=== PATIENT | female | born 1935 | race Hispanic/Latino ===

== ENCOUNTER 2017-07-05 18:29 | Emergency (ER) | payer BC, MEDICARE ==
[2017-07-05 18:29] VITALS: BMI 23.4
[2017-07-05 18:34] VITALS: BP 131/84; PULSE 96; RESP 16; TEMP 97.6; O2SAT 100
--- NOTE | 2017-07-05 19:17 | ED PDOC ---
HPI: Skin/Bite Injury Time Seen by Provider: 07/05/17 18:37 Chief Complaint (Nursing): Bite Chief Complaint (Provider): Possible rat bite History Per: Patient History/Exam Limitations: no limitations Onset/Duration Of Symptoms: Days (1) Current Symptoms Are (Timing): Still Present Additional History Per: Patient Additional Complaint(s): The patient is a 81yo female, no past medical history, presents to the ED for evaluation of a possible rat bite. Patient states she was visiting her friend yesterday and states the friends' home had rats; she reports waking up this morning with blood running down her face. Patient states she was bitten above her right eyebrow. She denies any falls, injuries or possibly scratching the area herself. Of note, patient states her tetanus is not up to date. She offers no other medical complaints. PCP: Dr. Aguilar - Animal Bite Description Of The Animal: Unknown (unsure if rat) Animal Appears: Unknown Past Medical History Reviewed: Historical Data, Nursing Documentation, Vital Signs Vital Signs: Last Vital Signs Temp 97.6 F 07/05/17 18:32 Pulse 96 H 07/05/17 18:32 Resp 16 07/05/17 18:32 BP 131/84 07/05/17 18:32 Pulse Ox 100 07/05/17 19:20 - Medical History PMH: Arthritis, Mitral Valve Prolapse - Surgical History Other surgeries: Hysterectomy, left breast lumpectomy - Family History Family History: States: No Known Family Hx - Living Arrangements Living Arrangements: With Family - Social History Current smoker - smoking cessation education provided: No Alcohol: Occasional Drugs: Denies - Immunization History Hx Tetanus Toxoid Vaccination: No (not sure of last tetanus) - Home Medications Home Medications: Ambulatory Orders Medication Instructions Recorded Aspirin [Ecotrin] 325 mg PO DAILY 07/19/16 Calcium/Vitamin D [Oyster Shell 1 tab PO DAILY 07/19/16 Calcium/Vitamin D 500 mg-200 IU] Fexofenadine HCl [Eda NF] 180 mg PO DAILY 07/19/16 Amoxicillin/Potassium Clav 1 tab PO BID #14 tab 07/05/17 [Augmentin 500 mg-125 mg] - Allergies Allergies/Adverse Reactions: Allergies Allergy/AdvReac Type Severity Reaction Status Date / Time No Known Allergies Allergy Verified 07/05/17 18:32 Review of Systems ROS Statement: Except As Marked, All Systems Reviewed And Found Negative Constitutional: Negative for: Fever Skin: Positive for: Other (wound to forehead) Neurological: Negative for: Headache Physical Exam - Reviewed Nursing Documentation Reviewed: Yes Vital Signs Reviewed: Yes - Physical Exam Appears: Positive for: Well, Non-toxic, No Acute Distress Skin: Positive for: Normal Color, Warm. Negative for: Rash Eye Exam: Positive for: Normal appearance, Other (2 puncture wounds noted to right side of forehead with surrounding mild swelling and ecchymosis) Neck: Positive for: Normal, Supple Cardiovascular/Chest: Positive for: Regular Rate, Rhythm Respiratory: Positive for: Normal Breath Sounds. Negative for: Respiratory Distress Extremity: Positive for: Normal ROM Neurologic/Psych: Positive for: Alert, Oriented. Negative for: Motor/Sensory Deficits - ECG O2 Sat by Pulse Oximetry: 100 (RA) Pulse Ox Interpretation: Normal Medical Decision Making Medical Decision Making: Time: 1854 Impression: Puncture wounds to right forehead, rat bite Plan: -- Augmentin initial dose -- TDAP booster -- Rabies vaccination --Rabies immunoglobulin Patient tolerated meds well in ED. Rx augmentin given along with wound care instructions. Patient was given schedule for remaining vaccines in rabies series. She was instructed to follow up with PMD in 1-2 days. Scribe Attestation: Documented by Sandy Ghosh acting as a scribe for SHELBI Maldonado Provider Attestation: All medical record entries made by the Scribe were at my direction and personally dictated by me. I have reviewed the chart and agree that the record accurately reflects my personal performance of the history, physical exam, medical decision making, and the department course for this patient. I have also personally directed, reviewed, and agree with the discharge instructions and disposition. Disposition - Clinical Impression Clinical Impression: Animal bite wound, Requires a booster tetanus, Need for rabies vaccination - Patient ED Disposition Is Patient to be Admitted: No Counseled Patient/Family Regarding: Diagnosis, Need For Followup, Rx Given - Disposition Referrals: Jerardo Aguilar MD [Family Provider] - Disposition: Routine/Home Disposition Time: 20:45 Condition: STABLE Additional Instructions: Wash wound daily with soap and water and apply neosporin once per day. Take antibiotics as directed. Tylenol as needed for pain. Follow up with primary care doctor in 1-2 days. Prescriptions: Amoxicillin/Potassium Clav [Augmentin 500 mg-125 mg] 1 tab PO BID #14 tab Instructions: Animal Bite (ED), Diphtheria/Acellular Pertussis/Tetanus Booster Vaccine (Tdap) (Injection), Rabies Vaccine (By injection) Forms: [employer] (Bahraini)
[2017-07-05] MEDS ORDERED: Amoxicillin-Clav 875-125 mg Tab PO STA (19:23)
[2017-07-05] MEDS ORDERED: Amoxicillin-Clav 875-125 mg Tab PO ONE (19:53)
[2017-07-05] MEDS ORDERED: Rabies Immune Globulin 150 INTLU/ML VIAL IM ONE (20:00)
[2017-07-05] MEDS ORDERED: RABIES VACCINE 2.5 U PDR IM ONE (20:00)
== END 2017-07-05 22:13 | disposition home or self-care (01) ==
LOC: H.ER 18:29
DX: S01.85XA Open bite of other part of head, initial encounter (principal); W53.11XA Bitten by rat, initial encounter; Y92.89 Other specified places as the place of occurrence of the external cause; Z79.82 Long term (current) use of aspirin; I34.1 Nonrheumatic mitral (valve) prolapse

== ENCOUNTER 2017-07-08 13:44 | Emergency (ER) | payer MEDICARE ==
[2017-07-08 13:45] VITALS: BMI 23.4
[2017-07-08 14:11] VITALS: BP 105/71; PULSE 84; RESP 18; TEMP 99.5; O2SAT 99
[2017-07-08] MEDS ORDERED: RABIES VACCINE 2.5 U PDR IM ONE (14:15)
--- NOTE | 2017-07-08 14:49 | ED PDOC ---
HPI: General Adult Time Seen by Provider: 07/08/17 14:10 Chief Complaint (Nursing): Rabies Vaccine Series Chief Complaint (Provider): rabies vaccine History Per: Patient History/Exam Limitations: no limitations Additional Complaint(s): 81yo F in Ed for 2nd rabies IM inj in series. offers no complaints at this time. Past Medical History Reviewed: Historical Data, Nursing Documentation, Vital Signs Vital Signs: Last Vital Signs Temp 99.5 F 07/08/17 14:08 Pulse 84 07/08/17 14:08 Resp 18 07/08/17 14:08 BP 105/71 07/08/17 14:08 Pulse Ox 99 07/08/17 14:08 - Medical History PMH: Arthritis, Mitral Valve Prolapse Denies: Chronic Kidney Disease - Family History Family History: States: No Known Family Hx - Immunization History Hx Tetanus Toxoid Vaccination: No (not sure of last tetanus) - Home Medications Home Medications: Ambulatory Orders Medication Instructions Recorded Aspirin [Ecotrin] 325 mg PO DAILY 07/19/16 Calcium/Vitamin D [Oyster Shell 1 tab PO DAILY 07/19/16 Calcium/Vitamin D 500 mg-200 IU] Fexofenadine HCl [Eda NF] 180 mg PO DAILY 07/19/16 Amoxicillin/Potassium Clav 1 tab PO BID #14 tab 07/05/17 [Augmentin 500 mg-125 mg] - Allergies Allergies/Adverse Reactions: Allergies Allergy/AdvReac Type Severity Reaction Status Date / Time No Known Allergies Allergy Verified 07/05/17 18:32 Review of Systems ROS Statement: Except As Marked, All Systems Reviewed And Found Negative Constitutional: Negative for: Fever Physical Exam - Reviewed Nursing Documentation Reviewed: Yes Vital Signs Reviewed: Yes - Physical Exam Appears: Positive for: Well, Non-toxic, No Acute Distress Skin: Positive for: Normal Color, Warm, Rash (healing abrsion noted to forehead) Cardiovascular/Chest: Positive for: Regular Rate, Rhythm Respiratory: Positive for: CNT, Normal Breath Sounds Neurologic/Psych: Positive for: Alert, Oriented - ECG O2 Sat by Pulse Oximetry: 99 Medical Decision Making Medical Decision Making: next IM inj to be placed 07/12/17. Disposition - Clinical Impression Clinical Impression: Need for rabies vaccination - Patient ED Disposition Is Patient to be Admitted: No Counseled Patient/Family Regarding: Need For Followup - Disposition Disposition: Routine/Home Disposition Time: 14:47 Condition: STABLE Additional Instructions: please return again on: Rabies IM vaccination: Vaccine #1 07/05/17 Vaccine #2 07/08/17 Vaccine #3 07/12/17 Vaccine #4 07/19/17 Instructions: Rabies Vaccine (ED) Forms: [employer] (Mohawk)
== END 2017-07-08 15:05 | disposition home or self-care (01) ==
LOC: H.ER 13:44
DX: Z29.14 Encounter for prophylactic rabies immune globulin (principal)

== ENCOUNTER 2017-07-12 16:33 | Emergency (ER) | payer MEDICARE, OTHER ==
[2017-07-12 16:48] VITALS: BP 117/75; PULSE 88; RESP 18; TEMP 97.5; O2SAT 99
[2017-07-12] MEDS ORDERED: RABIES VACCINE 2.5 U PDR IM ONE (16:49)
--- NOTE | 2017-07-12 17:23 | ED PDOC ---
HPI: General Adult Time Seen by Provider: 07/12/17 16:42 Chief Complaint (Nursing): Rabies Vaccine Series Chief Complaint (Provider): Rabies Vaccine Series History Per: Patient History/Exam Limitations: no limitations Additional Complaint(s): Krystin is an 81 y/o female who presents to the ED for third Rabies vaccine. Denies having any other medical complaints. PMD: Dr. Jerardo Alexander Past Medical History Reviewed: Historical Data, Nursing Documentation, Vital Signs Vital Signs: Last Vital Signs Temp 97.5 F L 07/12/17 16:50 Pulse 88 07/12/17 16:50 Resp 18 07/12/17 16:50 BP 117/75 07/12/17 16:50 Pulse Ox 99 07/12/17 17:25 - Medical History PMH: Arthritis, Malignancy (Left breast cancer), Mitral Valve Prolapse Denies: Chronic Kidney Disease - Surgical History Other surgeries: Cataract surgery, hysterectomy, breast biopsy - Family History Family History: States: Unknown Family Hx - Social History Current smoker - smoking cessation education provided: No Alcohol: None Drugs: Denies - Immunization History Hx Tetanus Toxoid Vaccination: No (not sure of last tetanus) - Home Medications Home Medications: Ambulatory Orders Medication Instructions Recorded Aspirin [Ecotrin] 325 mg PO DAILY 07/19/16 Calcium/Vitamin D [Oyster Shell 1 tab PO DAILY 07/19/16 Calcium/Vitamin D 500 mg-200 IU] Fexofenadine HCl [Eda NF] 180 mg PO DAILY 07/19/16 Amoxicillin/Potassium Clav 1 tab PO BID #14 tab 07/05/17 [Augmentin 500 mg-125 mg] - Allergies Allergies/Adverse Reactions: Allergies Allergy/AdvReac Type Severity Reaction Status Date / Time No Known Allergies Allergy Verified 07/05/17 18:32 Review of Systems ROS Statement: Except As Marked, All Systems Reviewed And Found Negative Physical Exam - Reviewed Nursing Documentation Reviewed: Yes Vital Signs Reviewed: Yes - Physical Exam Appears: Positive for: Well, Non-toxic, No Acute Distress Head Exam: Positive for: ATRAUMATIC, NORMAL INSPECTION, NORMOCEPHALIC Skin: Positive for: Normal Color, Warm, Dry Eye Exam: Positive for: EOMI, Normal appearance, PERRL ENT: Positive for: Normal ENT Inspection Neck: Positive for: Normal, Painless ROM Neurologic/Psych: Positive for: Alert, Oriented - ECG O2 Sat by Pulse Oximetry: 99 (RA) Pulse Ox Interpretation: Normal Medical Decision Making Medical Decision Making: Time: 16:49 --Rabies vaccine given IM Upon provider evaluation patient is medically stable, and requires no further treatment in the ED at this time. Patient will be discharged home. Counseling was provided and all questions were answered regarding diagnosis and need for return for vaccination series. There is agreement to discharge plan. Return if symptoms persist or worsen. Scribe Attestation: Documented by Sis Pike, acting as a scribe for Shelly Salomon PA-C Provider Scribe Attestation: All medical record entries made by the Scribe were at my direction and personally dictated by me. I have reviewed the chart and agree that the record accurately reflects my personal performance of the history, physical exam, medical decision making, and the department course for this patient. I have also personally directed, reviewed, and agree with the discharge instructions and disposition. Disposition - Clinical Impression Clinical Impression: Encounter for repeat administration of rabies vaccination - Patient ED Disposition Is Patient to be Admitted: No - Disposition Disposition Time: 17:00 Condition: STABLE Instructions: Rabies Vaccine (By injection) Forms: [employer] (Tajik)
== END 2017-07-12 17:24 | disposition home or self-care (01) ==
LOC: H.ER 16:33
DX: Z23 Encounter for immunization (principal)

== ENCOUNTER 2017-07-19 12:51 | Emergency (ER) | payer MEDICARE, OTHER ==
[2017-07-19 13:21] VITALS: BP 116/77; PULSE 84; RESP 18; TEMP 98.8; O2SAT 100
[2017-07-19] MEDS ORDERED: RABIES VACCINE 2.5 U PDR IM ONE (13:45)
--- NOTE | 2017-07-19 13:47 | ED PDOC ---
HPI: General Adult Time Seen by Provider: 07/19/17 13:25 Chief Complaint (Nursing): Rabies Vaccine Series Chief Complaint (Provider): Rabies Vaccine Series History Per: Patient History/Exam Limitations: no limitations Additional Complaint(s): Krystin is an 81 y/o female who presents to the ED for follow up of Rabies vaccination series. This is the 4th vaccination of the series. Denies pain, fever, or any medical complaints at this time. PMD: Jerardo Alexander Past Medical History Reviewed: Historical Data, Nursing Documentation, Vital Signs Vital Signs: Last Vital Signs Temp 98.8 F 07/19/17 13:19 Pulse 84 07/19/17 13:19 Resp 18 07/19/17 13:19 BP 116/77 07/19/17 13:19 Pulse Ox 100 07/19/17 13:48 - Medical History PMH: Arthritis, Malignancy (Left breast cancer), Mitral Valve Prolapse Denies: Chronic Kidney Disease - Family History Family History: States: Unknown Family Hx - Social History Current smoker - smoking cessation education provided: No Alcohol: None Drugs: Denies - Immunization History Hx Tetanus Toxoid Vaccination: No (not sure of last tetanus) - Home Medications Home Medications: Ambulatory Orders Medication Instructions Recorded Aspirin [Ecotrin] 325 mg PO DAILY 07/19/16 Calcium/Vitamin D [Oyster Shell 1 tab PO DAILY 07/19/16 Calcium/Vitamin D 500 mg-200 IU] Fexofenadine HCl [Eda NF] 180 mg PO DAILY 07/19/16 Amoxicillin/Potassium Clav 1 tab PO BID #14 tab 07/05/17 [Augmentin 500 mg-125 mg] - Allergies Allergies/Adverse Reactions: Allergies Allergy/AdvReac Type Severity Reaction Status Date / Time No Known Allergies Allergy Verified 07/05/17 18:32 Review of Systems ROS Statement: Except As Marked, All Systems Reviewed And Found Negative Constitutional: Negative for: Fever, Other (Pain) Physical Exam - Reviewed Nursing Documentation Reviewed: Yes Vital Signs Reviewed: Yes - Physical Exam Appears: Positive for: Well, Non-toxic, No Acute Distress Head Exam: Positive for: ATRAUMATIC, NORMAL INSPECTION, NORMOCEPHALIC Skin: Positive for: Normal Color, Warm, Dry. Negative for: Rash Eye Exam: Positive for: EOMI, Normal appearance, PERRL Neck: Positive for: Normal, Painless ROM, Supple Extremity: Positive for: Normal ROM. Negative for: Deformity Neurologic/Psych: Positive for: Alert, Oriented - ECG O2 Sat by Pulse Oximetry: 100 (RA) Pulse Ox Interpretation: Normal Medical Decision Making Medical Decision Making: Time: 13:22 Clinical Impression: Need for Rabies vaccination Plan: --Rabies vaccine administered Time: 13:48 Upon provider evaluation patient is medically stable, and requires no further treatment in the ED at this time. Patient will be discharged home. Counseling was provided and all questions were answered regarding diagnosis and need for follow up with PMD. There is agreement to discharge plan. Return if symptoms persist or worsen. Scribe Attestation: Documented by Sis Pike, acting as a scribe for Clementine De La Rosa PA-C Provider Scribe Attestation: All medical record entries made by the Scribe were at my direction and personally dictated by me. I have reviewed the chart and agree that the record accurately reflects my personal performance of the history, physical exam, medical decision making, and the department course for this patient. I have also personally directed, reviewed, and agree with the discharge instructions and disposition. Disposition - Clinical Impression Clinical Impression: Need for rabies vaccination - Patient ED Disposition Is Patient to be Admitted: No Counseled Patient/Family Regarding: Diagnosis, Need For Followup - Disposition Disposition: Routine/Home Disposition Time: 13:48 Condition: STABLE Instructions: Rabies (ED) Forms: [employer] (Croatian)
== END 2017-07-19 13:50 | disposition home or self-care (01) ==
LOC: H.ER 12:51
DX: Z29.14 Encounter for prophylactic rabies immune globulin (principal)

== ENCOUNTER 2017-11-16 14:03 | Emergency (ER) | payer MEDICARE, BC, OTHER ==
[2017-11-16 14:20] VITALS: BP 145/83; PULSE 112; RESP 17; TEMP 98.5; O2SAT 96
[2017-11-16] MEDS ORDERED: Sodium Chloride 0.9% 1,000 ML IV STA (14:31)
--- NOTE | 2017-11-16 14:31 | ED PDOC ---
HPI: Back Time Seen by Provider: 11/16/17 14:31 Chief Complaint (Nursing): Back Pain Chief Complaint (Provider): back pain, constipation History Per: Patient, Family Additional Complaint(s): 82 year old female with no past medical history presents with upper and mid back pain s/p taking a long walk 3 days ago. Patient states after she came home from a walk in the cold she felt pain in back. Tylenol taken 2 days ago did not help the pain. Patient denies any associated chest pain, SOB or ALBERT. Patient states she has also been constipated since the pain started. She believes that the pain in her back is preventing her from having bowel movement as she has worsening back pain when she strains for BM. Patient denies any diarrhea, nausea or vomiting, no fever or chills. Past Medical History Reviewed: Historical Data, Nursing Documentation, Vital Signs Vital Signs: Last Vital Signs Temp 98.5 F 11/16/17 14:15 Pulse 112 H 11/16/17 14:15 Resp 17 11/16/17 14:15 BP 145/83 11/16/17 14:15 Pulse Ox 96 11/16/17 14:15 - Medical History PMH: Arthritis, Malignancy (Left breast cancer, 1999) - Surgical History Other surgeries: Left lumpectomy, hysterectomy - Family History Family History: States: No Known Family Hx - Living Arrangements Living Arrangements: With Family - Social History Current smoker - smoking cessation education provided: No Ex-Smoker (has not smoked in the last 12 months): No Alcohol: None Drugs: Denies - Home Medications Home Medications: Ambulatory Orders Medication Instructions Recorded Aspirin [Ecotrin] 325 mg PO DAILY 07/19/16 Calcium/Vitamin D [Oyster Shell 1 tab PO DAILY 07/19/16 Calcium/Vitamin D 500 mg-200 IU] Fexofenadine HCl [Eda NF] 180 mg PO DAILY 07/19/16 Amoxicillin/Potassium Clav 1 tab PO BID #14 tab 07/05/17 [Augmentin 500 mg-125 mg] Cyclobenzaprine HCl 5 mg PO TID PRN #20 tablet 11/16/17 Glycerin [Glycerin Adult 1 sup RC ASDIR #10 sup 11/16/17 Suppository] Ibuprofen [Motrin] 600 mg PO Q6 PRN #20 tab 11/16/17 Polyethylene Glycol 3350 [Miralax] 17 gm PO DAILY #300 gm 11/16/17 - Allergies Allergies/Adverse Reactions: Allergies Allergy/AdvReac Type Severity Reaction Status Date / Time No Known Allergies Allergy Verified 07/05/17 18:32 Review of Systems ROS Statement: Except As Marked, All Systems Reviewed And Found Negative Constitutional: Negative for: Fever Cardiovascular: Negative for: Chest Pain Respiratory: Negative for: Cough, Shortness of Breath Gastrointestinal: Positive for: Abdominal Pain, Constipation (x 3 days). Negative for: Nausea, Vomiting, Diarrhea Genitourinary Female: Negative for: Dysuria, Hematuria Musculoskeletal: Positive for: Back Pain (upper and mid) Neurological: Negative for: Confusion, Headache, Dizziness Physical Exam - Reviewed Nursing Documentation Reviewed: Yes Vital Signs Reviewed: Yes - Physical Exam Appears: Positive for: Well, Non-toxic, No Acute Distress Skin: Negative for: Rash Eye Exam: Positive for: Normal appearance Neck: Positive for: Painless ROM Cardiovascular/Chest: Positive for: Regular Rate, Rhythm Respiratory: Positive for: Normal Breath Sounds Gastrointestinal/Abdominal: Positive for: Soft, Tenderness (mild diffuse tenderness mild diffuse tenderness in all 4 quadrants, no rebound or guarding) Back: Positive for: Vertebral Tenderness (thoracic and lumbar). Negative for: L CVA Tenderness, R CVA Tenderness Extremity: Positive for: Normal ROM Neurologic/Psych: Positive for: Alert, Oriented, Gait (steady with cane used at baseline) - Laboratory Results Result Diagrams: 11/16/17 15:15 11/16/17 15:15 Urine dip results: Negative for: Leukocyte Esterase, Blood, Nitrate, Ketones, Glucose, Bilirubin, Protein - ECG Interpretation Of ECG: NSR 81 bpm, no acute finding, reviewed by PA and ED attending O2 Sat by Pulse Oximetry: 96 Pulse Ox Interpretation: Normal - Other Rad CXR X-Ray: Interpreted by Me, Viewed By Me X-Ray Interpretation: no acute finding L/S Spine x-ray X-Ray: Interpreted by Me, Viewed By Me X-Ray Interpretation: see below KUB X-Ray: Interpreted by Me, Viewed By Me X-Ray Interpretation: moderate feces with no obstruction Medical Decision Making Medical Decision Makin82 year old with back pain and constipation Plan: CBC CMP Urine dip KUB L/S spine x-ray CXR IVF PO motrin for pain L/S Spine x-ray: Age-indeterminate L4 superior endplate compression deformity. Pain is better after motrin dose. Patient was offered suppository or laxative in ED but she declined, she prefers to go home and try constipation meds. Patient is aware of all test results. She states she fell several years ago sustaining fracture to L/S spine as noted on x-ray from today. Will d/c with rx motrin, flexeril, miralax and suppositories. High fiber diet instructions given. Advised PMD follow up. Patient is aware she can RTED at any time if acutely worse. Disposition - Clinical Impression Clinical Impression: Back pain, Constipation - Patient ED Disposition Is Patient to be Admitted: No Counseled Patient/Family Regarding: Studies Performed, Diagnosis, Need For Followup, Rx Given - Disposition Referrals: Jerardo Alexander MD [Family Provider] - Disposition: Routine/Home Disposition Time: 16:55 Condition: STABLE Additional Instructions: INCREASE WATER AND FIBER INTAKE TO HELP WITH CONSTIPATION TAKE RX MEDS DIRECTED FOLLOW UP WITH PRIMARY CARE DOCTOR OR RETURN ANY TIME TO ER IF ACUTELY WORSE. Prescriptions: Cyclobenzaprine HCl 5 mg PO TID PRN #20 tablet PRN Reason: Pain, Moderate (4-7) Glycerin [Glycerin Adult Suppository] 1 sup RC ASDIR #10 sup Ibuprofen [Motrin] 600 mg PO Q6 PRN #20 tab PRN Reason: Pain, Moderate (4-7) Polyethylene Glycol 3350 [Miralax] 17 gm PO DAILY #300 gm Instructions: Constipation (ED), High Fiber Diet (ED), Back Pain (ED) Forms: [employer] (Sami) Results - Lab Results Lab Results: 11/16/17 11/16/17 15:15 15:15 WBC 10.0 RBC 4.71 Hgb 12.5 Hct 39.2 MCV 83.3 D MCH 26.5 L MCHC 31.8 L RDW 14.5 Plt Count 212 MPV 8.8 Neut % (Auto) 84.1 H Lymph % (Auto) 9.2 L [place] % (Auto) 6.2 Eos % (Auto) 0.1 Baso % (Auto) 0.4 Neut # 8.4 H Lymph # 0.9 L [place] # 0.6 Eos # 0.0 Baso # 0.0 Neutrophils % (Manual) Pending Lymphocytes % (Manual) Pending Monocytes % (Manual) Pending Platelet Estimate Pending Sodium 139 Potassium 4.1 Chloride 103 Carbon Dioxide 27 Anion Gap 13 BUN 19 H Creatinine 0.7 Est GFR ( Amer) > 60 Est GFR (Non-Af Amer) > 60 Random Glucose 109 H Calcium 9.8 Total Bilirubin 0.4 AST 30 ALT 32 Alkaline Phosphatase 52 Troponin I < 0.0120 Total Protein 7.8 Albumin 4.4 Globulin 3.4 Albumin/Globulin Ratio 1.3
[2017-11-16 15:30] LABS: BASO % 0.4 % (0.0-2.0); EOS % 0.1 % (0.0-4.0); HEMOGLOBIN 12.5 g/dL (12.0-16.0); LYMPH # 0.9 K/uL (1.0-4.3); LYMPH % 9.2 % (20.0-40.0); MEAN CELL VOLUME 83.3 fl (81.0-99.0); MEAN CORPUSCULAR HEMOGLOBIN 26.5 pg (27.0-31.0); MEAN CORPUSCULAR HGB CONC 31.8 g/dL (33.0-37.0); MEAN PLATELET VOLUME 8.8 fl (7.2-11.7); MONO # 0.6 K/uL (0.0-0.8); MONO % 6.2 % (0.0-10.0); NEUT # 8.4 K/uL (1.8-7.0); NEUT % 84.1 % (50.0-75.0); PLATELET COUNT 212 K/uL (130-400); RBC 4.71 Mil/uL (3.80-5.20); RED CELL DISTRIBUTION WIDTH 14.5 % (11.5-14.5)
[2017-11-16 15:37] LABS: ALB/GLOB RATIO 1.3 (1.0-2.1); ALBUMIN 4.4 g/dL (3.5-5.0); ALT/SGPT 32 U/L (9-52); AST/SGOT 30 U/L (14-36); BLOOD UREA NITROGEN 19 mg/dl (7-17); CALCIUM 9.8 mg/dL (8.4-10.2); GFR AFRICAN-AMERICAN > 60; GFR NON-AFRICAN AMERICAN > 60
--- NOTE | 2017-11-16 16:19 | RAD ---
HISTORY: upper back pain COMPARISON: Chest radiograph dated 07/13/2016. TECHNIQUE: Chest PA and lateral FINDINGS: LUNGS: Stable chronic prominence of the bilateral interstitial markings. PLEURA: No significant pleural effusion identified. No pneumothorax apparent. CARDIOVASCULAR: Unchanged. OSSEOUS STRUCTURES: Exaggerated thoracic kyphosis. Degenerative changes. VISUALIZED UPPER ABDOMEN: Normal. OTHER FINDINGS: None. IMPRESSION: No active disease.
--- NOTE | 2017-11-16 16:20 | RAD ---
PROCEDURE: Radiographs of the Lumbar Spine. HISTORY: pain COMPARISON: Correlation is made to chest radiograph dated 07/13/2016. FINDINGS: BONES: Age-indeterminate superior endplate compression deformity of L4. L1 vertebral compression fracture redemonstrated. DISC SPACES: Multilevel narrowing. OTHER FINDINGS: None. IMPRESSION: Age-indeterminate L4 superior endplate compression deformity. MRI can be obtained for further characterization of acuity as clinically warranted.
--- NOTE | 2017-11-16 16:27 | RAD ---
HISTORY: constipation COMPARISON: No prior. FINDINGS: BOWEL: Prominent matter retained colonic stool. Nonspecific bowel gas pattern. No free air. BONES: Diffuse degenerative changes. OTHER FINDINGS: None. IMPRESSION: Prominent amount of retained colonic stool. Nonspecific bowel gas pattern.
[2017-11-16 17:22] LABS: ANISOCYTOSIS SLIGHT; BANDS 5 % (0-2); LYMPHOCYTE 11 % (20-50); MONOCYTE 8 % (0-10); NEUTROPHIL 76 % (42-75); PLATELET ESTIMATE NORMAL (NORMAL); TOTAL CELLS COUNTED 100
[2017-11-16 17:23] LABS: HYPOCHROMIC SLIGHT; MICROCYTOSIS SLIGHT; POIKILOCYTOSIS SLIGHT; TOXIC GRANULATION PRESENT
--- NOTE | 2017-11-17 09:25 | CARD ---
APPROVED REPORT EKG Measurement Heart [id number] ID [id number] <Conclusion> Normal sinus rhythm Possible Left atrial enlargement Borderline ECG
== END 2017-11-16 17:10 | disposition home or self-care (01) ==
LOC: H.ER 14:03
DX: K59.00 Constipation, unspecified (principal); Z79.82 Long term (current) use of aspirin; Z85.3 Personal history of malignant neoplasm of breast; Z87.891 Personal history of nicotine dependence; Z90.710 Acquired absence of both cervix and uterus; M54.9 Dorsalgia, unspecified
CPT/HCPCS: 71020; 72100; 74000; 80053; 84484; 85025; 93005; 96360; 96361; 99282; J7040

== ENCOUNTER 2017-12-06 15:33 | Inpatient (IN) | payer MEDICARE, BC ==
[2017-12-06] MEDS ORDERED: Sodium Chloride 0.9% 500 ML IV STA (17:08)
--- NOTE | 2017-12-06 17:20 | ED PDOC ---
HPI: Back Time Seen by Provider: 12/06/17 16:54 Chief Complaint (Nursing): Shortness Of Breath Chief Complaint (Provider): back pain and SOB History Per: Patient History/Exam Limitations: no limitations Onset/Duration Of Symptoms: Gradual, Other (x2+ weeks worse last few days\) Current Symptoms Are (Timing): Still Present Quality Of Discomfort: Sharp Severity: Severe Previous Symptoms: Back Pain Associated Symptoms: Other (urinary frequency) Exacerbating Factor(s): Turning, Movement, Standing Additional Complaint(s): 82yo female represents c/o back pain, mostly lower back but radiating to left lower ribs and chest. Symptoms worsened w deep breathing causing symptoms of SOB. Denies cough, weakness, fever, vomiting/diarrhea. She has been seen in ED [place] with similar symptoms had LS xray showing age indeterminate compression fx. Denies falls, focal weakness but states not ambulating well. Saw PMD and Rx muscle relaxant and meloxicam but poorly tolerated w getting confused and generalized weakness. Had PT x2 but had to be abandoned due to pain. Past Medical History Reviewed: Historical Data, Nursing Documentation, Vital Signs Vital Signs: Last Vital Signs Temp 96.8 F L 12/06/17 15:58 Pulse 113 H 12/06/17 15:58 Resp 16 12/06/17 15:58 BP 133/76 12/06/17 15:58 Pulse Ox 98 12/06/17 15:58 - Medical History PMH: Arthritis, Malignancy (Left breast cancer), Mitral Valve Prolapse Denies: Chronic Kidney Disease - Family History Family History: States: Unknown Family Hx - Social History Current smoker - smoking cessation education provided: No - Immunization History Hx Tetanus Toxoid Vaccination: No (not sure of last tetanus) - Home Medications Home Medications: Ambulatory Orders Medication Instructions Recorded Aspirin [Ecotrin] 325 mg PO DAILY 07/19/16 Calcium/Vitamin D [Oyster Shell 1 tab PO DAILY 07/19/16 Calcium/Vitamin D 500 mg-200 IU] Fexofenadine HCl [Eda NF] 180 mg PO DAILY 07/19/16 Amoxicillin/Potassium Clav 1 tab PO BID #14 tab 07/05/17 [Augmentin 500 mg-125 mg] Cyclobenzaprine HCl 5 mg PO TID PRN #20 tablet 11/16/17 Glycerin [Glycerin Adult 1 sup RC ASDIR #10 sup 11/16/17 Suppository] Ibuprofen [Motrin] 600 mg PO Q6 PRN #20 tab 11/16/17 Polyethylene Glycol 3350 [Miralax] 17 gm PO DAILY #300 gm 11/16/17 - Allergies Allergies/Adverse Reactions: Allergies Allergy/AdvReac Type Severity Reaction Status Date / Time No Known Allergies Allergy Verified 07/05/17 18:32 Review of Systems ROS Statement: Except As Marked, All Systems Reviewed And Found Negative Constitutional: Negative for: Fever, Chills ENT: Negative for: Nose Discharge Cardiovascular: Positive for: Chest Pain. Negative for: Light Headedness Respiratory: Positive for: Shortness of Breath. Negative for: Cough Gastrointestinal: Negative for: Nausea, Vomiting, Abdominal Pain Genitourinary Female: Positive for: Frequency Musculoskeletal: Positive for: Back Pain, Leg Pain. Negative for: Neck Pain, Shoulder Pain Skin: Negative for: Rash, Lesions, Jaundice Neurological: Positive for: Dizziness. Negative for: Weakness, Numbness, Headache Physical Exam - Reviewed Nursing Documentation Reviewed: Yes Vital Signs Reviewed: Yes - Physical Exam Appears: Positive for: Well, Non-toxic, No Acute Distress Head Exam: Positive for: ATRAUMATIC, NORMAL INSPECTION, NORMOCEPHALIC Skin: Positive for: Normal Color, Warm, DRY Eye Exam: Positive for: EOMI, Normal appearance, PERRL ENT: Positive for: Normal ENT Inspection Neck: Positive for: Normal, Painless ROM Cardiovascular/Chest: Positive for: Tachycardia. Negative for: Irregularly Irregular Respiratory: Positive for: Decreased Breath Sounds. Negative for: Respiratory Distress Gastrointestinal/Abdominal: Positive for: Bowel Sounds, Soft. Negative for: Tenderness, Guarding Back: Positive for: Vertebral Tenderness (lumbar), Decreased ROM Extremity: Positive for: Normal ROM Neurologic/Psych: Positive for: Alert, Oriented, Gait (unable to assess ). Negative for: Motor/Sensory Deficits - Laboratory Results Result Diagrams: 12/06/17 17:59 - ECG O2 Sat by Pulse Oximetry: 98 Medical Decision Making Medical Decision Making: workup initiated for low back pain, also has mild tachycardia. Hx breast ca (lumpectomy) 1999. Obt[address] CT imaging LS spine to better eval compression fx. Labs also ordered given mild tachycardia. CT: Accession No. : [id number] Patient Name / ID : LALIT GODFREY / [id number] Exam Date : 12/06/2017 17:58:20 ( Approved ) Study Comment : Sex / Age : F / 82Y Creator : Bryon Pat MD Dictator : Bryon Pat MD Follow Up Rep : Membership Sales Advisor : Bryon Pat MD Approver2 : Report Date : 12/06/2017 18:32:51 My Comment : PROCEDURE: CT Lumbar Spine without contrast HISTORY: intractable low back pain COMPARISON: None. TECHNIQUE: Axial computed tomography images were obtained of the lumbar spine without the use of intravenous contrast. Coronal and sagittal reformatted images were created and reviewed. Radiation dose: Total exam DLP = 334.25 mGy-cm. This CT exam was performed using one or more of the following dose reduction techniques: Automated exposure control, adjustment of the mA and/or kV according to patient size, and/or use of iterative reconstruction technique. FINDINGS: VERTEBRAE: There is dextroscoliosis of the lumbar spine. There is mild anterior wedge compression deformity of the T12 vertebra, age indeterminate. There is a calcified Schmorl's node in the superior T12 vertebral endplate. There is severe compression deformity of the L2 vertebral body, age indeterminate. There is bony retropulsion resulting in central spinal stenosis. There is mild central compression deformity of the L3 vertebral body, age indeterminate. There is no other vertebral fracture identified. Normal vertebral alignment is maintained. DISCS/SPINAL CANAL/NEURAL FORAMINA: Multilevel neural foraminal stenosis. No disc herniation. Central spinal stenosis noted at L1-2, L2-3 and mild central stenosis at L3-4 and L4-5. Diffuse disc bulge at L4-5 and calcified disc bulge at L5-S1. PARASPINAL SOFT TISSUES: Unremarkable. OTHER FINDINGS: None. IMPRESSION: Dextroscoliosis. Severe compression deformity of the L2 vertebral body with bony retropulsion, all of indeterminate age. Mild central compression deformity of the L3 vertebra. Central spinal stenosis at multiple levels, most pronounced at L1-2 and L2-3. Multilevel neural foraminal stenosis. Patient has failed outpatient therapy including PT, multiple pain medications and muscle relaxant. D/w Dr Aguilar, admit for possible IR intervention/ requests Dr Arevalo for pain consult Lidoderm patch placed and further analgesia w tylenol started. Caution w narcotics due to age and frailty. Fall risk. D/w FP resident 7pm care transferred. Disposition - Clinical Impression Clinical Impression: Compression fracture of lumbar vertebra, Spinal stenosis - Patient ED Disposition Is Patient to be Admitted: Yes Counseled Patient/Family Regarding: Studies Performed, Diagnosis - Disposition Disposition Time: 18:45 Condition: FAIR Forms: [employer] (Romansh) - Pt Status Changed To: Hospital Disposition Of: Inpatient - Admit Certification Admit to Inpatient:: After my assessment, the patient will require hospitalization for at least two midnights. This is because of the severity of symptoms shown, intensity of services needed, and/or the medical risk in this patient being treated as an outpatient. - POA Present On Arrival: None
[2017-12-06 18:05] LABS: BASO # 0.1 K/uL (0.0-0.2); EOS # 0.1 K/uL (0.0-0.7); EOS % 1.3 % (0.0-4.0); HEMOGLOBIN 12.3 g/dL (12.0-16.0); LYMPH # 0.9 K/uL (1.0-4.3); LYMPH % 10.6 % (20.0-40.0); MEAN CELL VOLUME 83.1 fl (81.0-99.0); MEAN CORPUSCULAR HEMOGLOBIN 26.9 pg (27.0-31.0); MEAN CORPUSCULAR HGB CONC 32.4 g/dL (33.0-37.0); MEAN PLATELET VOLUME 8.4 fl (7.2-11.7); MONO # 0.7 K/uL (0.0-0.8); MONO % 8.5 % (0.0-10.0); NEUT # 6.7 K/uL (1.8-7.0); NEUT % 78.6 % (50.0-75.0); NRBC % 0.1 % (0.0-0.0); RBC 4.56 Mil/uL (3.80-5.20); RED CELL DISTRIBUTION WIDTH 15.8 % (11.5-14.5); WHITE BLOOD COUNT 8.6 K/uL (4.8-10.8)
--- NOTE | 2017-12-06 18:34 | CT ---
PROCEDURE: CT Lumbar Spine without contrast HISTORY: intractable low back pain COMPARISON: None. TECHNIQUE: Axial computed tomography images were obtained of the lumbar spine without the use of intravenous contrast. Coronal and sagittal reformatted images were created and reviewed. Radiation dose: Total exam DLP = 334.25 mGy-cm. This CT exam was performed using one or more of the following dose reduction techniques: Automated exposure control, adjustment of the mA and/or kV according to patient size, and/or use of iterative reconstruction technique. FINDINGS: VERTEBRAE: There is dextroscoliosis of the lumbar spine. There is mild anterior wedge compression deformity of the T12 vertebra, age indeterminate. There is a calcified Schmorl's node in the superior T12 vertebral endplate. There is severe compression deformity of the L2 vertebral body, age indeterminate. There is bony retropulsion resulting in central spinal stenosis. There is mild central compression deformity of the L3 vertebral body, age indeterminate. There is no other vertebral fracture identified. Normal vertebral alignment is maintained. DISCS/SPINAL CANAL/NEURAL FORAMINA: Multilevel neural foraminal stenosis. No disc herniation. Central spinal stenosis noted at L1-2, L2-3 and mild central stenosis at L3-4 and L4-5. Diffuse disc bulge at L4-5 and calcified disc bulge at L5-S1. PARASPINAL SOFT TISSUES: Unremarkable. OTHER FINDINGS: None. IMPRESSION: Dextroscoliosis. Severe compression deformity of the L2 vertebral body with bony retropulsion, all of indeterminate age. Mild central compression deformity of the L3 vertebra. Central spinal stenosis at multiple levels, most pronounced at L1-2 and L2-3. Multilevel neural foraminal stenosis.
[2017-12-06] MEDS ORDERED: Lidocaine 5% Patch TD STA (18:47)
[2017-12-06 18:49] LABS: SQUAMOUS EPITHIAL 1 /hpf (0-5); URINE BACTERIA RARE (<OCC); URINE BILIRUBIN NEGATIVE (NEGATIVE); URINE BLOOD SMALL (NEGATIVE); URINE CLARITY CLOUDY (Clear); URINE COLOR YELLOW (YELLOW); URINE GLUCOSE (UA) NEG (Normal); URINE LEUKOCYTE ESTERASE TRACE Leu/uL (Negative); URINE NITRATE NEGATIVE (NEGATIVE); URINE PROTEIN 30 mg/dL (NEGATIVE); URINE UROBILINOGEN 0.2-1.0 mg/dL (0.2-1.0)
[2017-12-06 19:15] LABS: ALB/GLOB RATIO 1.2 (1.0-2.1); ALBUMIN 3.9 g/dL (3.5-5.0); ALT/SGPT 33 U/L (9-52); AST/SGOT 30 U/L (14-36); BLOOD UREA NITROGEN 21 mg/dl (7-17); CALCIUM 9.2 mg/dL (8.4-10.2); GFR AFRICAN-AMERICAN > 60; GFR NON-AFRICAN AMERICAN > 60
[2017-12-06] MEDS ORDERED: HYDROmorphone 0.5 mg/0.5 ml ISec IVP PRN (20:47)
--- NOTE | 2017-12-06 21:09 | CP.PCM.HP ---
History of Present Illness - History of Present Illness History of Present Illness: PMD: Dr Alexander Full code Patient designates her nephew: Chance Otero([phone]) as healthcare proxy. 82 y/o F patient with PMHx of breast ca in 1999 s/p Chemo, radio and hormone therapy at the time presented to ED with her cousin c/o lower back pain for the past 3 weeks. Pain has been getting worse, radiates to both LE occasionally when she walks but denies paresthesias to LE or weakness. Patient was completely functional before the pain started able to take care of herself but now pain is almost constant with minimal position changes and she is having severe difficulty walking due to pain. Patient presented to ED about 3 weeks ago and Lumbar spine Xray at the time reported lumbar compression deformity of indeterminate age and was discharge home with NSAIDs and to f/u as outpatient. Patient visited Dr Alexander 2 days ago after no improvement and was prescribed Meloxican and Cyclobezaprine. She denies feeling any improvement and states that the Cyclobenzaprine made her dizzy and she stopped it. Patient states that she is having difficulty urinating today. Last time she voided was in the morning and although she have the urge to void she hasnt been able to it. Denies feces incontinence, saddle anesthesia, headaches, fever, CP, palpitations or dizziness. Denies Hx of recent falls or trauma. Admits falling about 4 y/a to her back and she received PT after. ED course: Toradol 15 mg IV once NS IV 500ml Tylenol 650mg PO once Lidoderm patch once EKG, CXR, Lumbar spine CT: L2-L3 compression deformities and multilevel spinal stenosis(Please see full report). Present on Admission - Present on Admission Any Indicators Present on Admission: No Review of Systems - Review of Systems All systems: reviewed and no additional remarkable complaints except - Genitourinary Genitourinary: Difficulty Urinating - Musculoskeletal Musculoskeletal: Back Pain Past Patient History - Past Medical History & Family History Past Medical History?: Yes - Past Social History Smoking Status: Never Smoked Alcohol: Social Drugs: Denies Home Situation {Lives}: With Family - PULMONARY Other/Comment: SEASONAL ALLERGY - NEUROLOGICAL Hx Neurological Disorder: No - RENAL Hx Chronic Kidney Disease: No - ENDOCRINE/METABOLIC Hx Endocrine Disorders: No - HEMATOLOGICAL/ONCOLOGICAL Hx Blood Disorders: Yes 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 [place]) - INTEGUMENTARY Hx Dermatological Problems: No - MUSCULOSKELETAL/RHEUMATOLOGICAL Hx Arthritis: Yes - GASTROINTESTINAL Other/Comment: HEARTBURN - GENITOURINARY/GYNECOLOGICAL Hx Genitourinary Disorders: No - PSYCHIATRIC Hx Psychophysiologic Disorder: No Hx Substance Use: No - SURGICAL HISTORY Hx Surgeries: Yes Hx Breast Biopsy: Yes (LEFT) Hx Cataract Extraction: Yes (right) Hx Hysterectomy: Yes (AT AGE 41) - ANESTHESIA Hx Anesthesia: Yes Hx Anesthesia Reactions: No Hx Malignant Hyperthermia: No Meds Allergies/Adverse Reactions: Allergies Allergy/AdvReac Type Severity Reaction Status Date / Time No Known Allergies Allergy Verified 07/05/17 18:32 Physical Exam - Constitutional Appears: Non-toxic, In Acute Distress (MIld due to pain and urinary urgency) - Head Exam Head Exam: ATRAUMATIC, NORMOCEPHALIC - Eye Exam Eye Exam: PERRL - ENT Exam ENT Exam: Mucous Membranes Moist - Neck Exam Neck exam: Positive for: Full Rom - Respiratory Exam Respiratory Exam: Clear to Auscultation Bilateral, NORMAL BREATHING PATTERN. absent: Rales, Wheezes, Respiratory Distress - Cardiovascular Exam Cardiovascular Exam: REGULAR RHYTHM, +S1, +S2 - GI/Abdominal Exam GI & Abdominal Exam: Normal Bowel Sounds, Soft, Tenderness (Moderate suprapubic) . absent: Guarding - Extremities Exam Extremities exam: Positive for: normal capillary refill, normal inspection. Negative for: calf tenderness, pedal edema, tenderness - Back Exam Back exam: paraspinal tenderness, vertebral tenderness (Lumbar spine L3-L4) Additional comments: Straight leg test neg B/L. - Neurological Exam Neurological exam: Alert, CN II-XII Intact, Oriented x3, Reflexes Normal - Psychiatric Exam Psychiatric exam: Normal Affect, Normal Mood - Skin Skin Exam: Normal Color, Warm Results - Vital Signs Recent Vital Signs: Last Vital Signs Temp 98.0 F 12/06/17 20:43 Pulse 90 12/06/17 20:43 Resp 18 12/06/17 20:43 BP 140/92 H 12/06/17 20:43 Pulse Ox 98 12/06/17 20:29 - Labs Result Diagrams: 12/06/17 17:59 12/06/17 17:59 Labs: Laboratory Results - last 24 hr 12/06/17 12/06/17 12/06/17 17:59 17:59 18:34 WBC 8.6 RBC 4.56 Hgb 12.3 Hct 37.9 MCV 83.1 MCH 26.9 L MCHC 32.4 L RDW 15.8 H Plt Count 246 MPV 8.4 Neut % (Auto) 78.6 H Lymph % (Auto) 10.6 L [place] % (Auto) 8.5 Eos % (Auto) 1.3 Baso % (Auto) 1.0 Neut # 6.7 Lymph # 0.9 L [place] # 0.7 Eos # 0.1 Baso # 0.1 Sodium 137 Potassium 4.0 Chloride 104 Carbon Dioxide 23 Anion Gap 14 BUN 21 H Creatinine 0.7 Est GFR ( Amer) > 60 Est GFR (Non-Af Amer) > 60 Random Glucose 97 Calcium 9.2 Total Bilirubin 0.5 AST 30 ALT 33 Alkaline Phosphatase 89 Total Protein 7.2 Albumin 3.9 Globulin 3.3 Albumin/Globulin Ratio 1.2 Urine Color Yellow Urine Clarity Cloudy Urine pH 6.0 Ur Specific [place] 1.021 Urine Protein 30 Urine Glucose (UA) Neg Urine Ketones Negative Urine Blood Small Urine Nitrate Negative Urine Bilirubin Negative Urine Urobilinogen 0.2-1.0 Ur Leukocyte Esterase Trace Urine RBC (Auto) 7 H Urine Microscopic WBC 4 Ur Squamous Epith Cells 1 Urine Bacteria Rare Hyaline Casts 11-20 H Assessment & Plan - Assessment and Plan (Free Text) Assessment: 82 y/o F with Hx of breast ca on remission presents for compression deformity of lumbar spine and intractable pain. Compression deformity lumbar spine and spinal stenosis -Indeterminate age -VS stable -CT lumbar spines shows multilevel lumbar disc compression deformity and spinal stenosis of indeterminate age: Please see full report -Denies hx of recent trauma or fall -Intractable pain -Urinary retention -Admit to Med Sx -IR consult for eval for vertebroplasty -Pain control -Fall precautions -BMP, CBC, CXR and EKG unremarkable Intractable lower back pain -Acute -Tylenol 650 mg q6h PRN for mild pain -Toradol 15 mg IVP q6h PRN for moderate pain -Dilaudid 0.5 mg IVP q6h PRN for severe pain -Lidoderm patch daily to lower back -Pain management consult: Dr Arevalo -PT eval and treatment Urinary retention -Acute -R/O spinal cord compression -Hill insertion once -U/A and UCx stat -BMP, CBC next day AM -I&O, regular diet DVT prophylaxis -Lovenox 40 mg SQ daily -SCDs PRN
[2017-12-06 21:13] LABS: URINE BILIRUBIN NEGATIVE (NEGATIVE); URINE BLOOD NEGATIVE (NEGATIVE); URINE CLARITY CLEAR (Clear); URINE COLOR STRAW (YELLOW); URINE GLUCOSE (UA) NEG (Normal); URINE LEUKOCYTE ESTERASE NEG Leu/uL (Negative); URINE NITRATE NEGATIVE (NEGATIVE); URINE PROTEIN NEGATIVE (NEGATIVE); URINE UROBILINOGEN 0.2-1.0 mg/dL (0.2-1.0)
[2017-12-07 07:15] LABS: BASO # 0.1 K/uL (0.0-0.2); BASO % 0.8 % (0.0-2.0); EOS # 0.3 K/uL (0.0-0.7); EOS % 3.9 % (0.0-4.0); HEMOGLOBIN 12.2 g/dL (12.0-16.0); LYMPH # 1.2 K/uL (1.0-4.3); LYMPH % 15.7 % (20.0-40.0); MEAN CELL VOLUME 83.3 fl (81.0-99.0); MEAN CORPUSCULAR HEMOGLOBIN 27.3 pg (27.0-31.0); MEAN CORPUSCULAR HGB CONC 32.8 g/dL (33.0-37.0); MEAN PLATELET VOLUME 8.8 fl (7.2-11.7); MONO # 0.7 K/uL (0.0-0.8); MONO % 8.5 % (0.0-10.0); NEUT # 5.5 K/uL (1.8-7.0); NEUT % 71.1 % (50.0-75.0); NRBC % 0.1 % (0.0-0.0); RBC 4.48 Mil/uL (3.80-5.20); RED CELL DISTRIBUTION WIDTH 15.7 % (11.5-14.5); WHITE BLOOD COUNT 7.7 K/uL (4.8-10.8)
[2017-12-07 07:39] LABS: INR 1.1 (0.9-1.2); PROTHROMBIN TIME 11.9 Seconds (9.8-13.1)
[2017-12-07 07:40] LABS: BLOOD UREA NITROGEN 15 mg/dl (7-17); CALCIUM 8.6 mg/dL (8.4-10.2); GFR AFRICAN-AMERICAN > 60; GFR NON-AFRICAN AMERICAN > 60; PARTIAL THROMBOPLASTIN TIME 27.7 Seconds (25.6-37.1)
[2017-12-07] MEDS: Lidocaine 5% Patch TD SCH (08:50)
[2017-12-07] MEDS: Enoxaparin 40 mg Syringe SC SCH (08:52)
--- NOTE | 2017-12-07 10:08 | CP.PCM.CON ---
History of Present Illness - History of Present Illness History of Present Illness: HCP: Chance Otero (Nephew) [phone] 82 year old female with past medical history of breast cancer s/p chemoradiation and hormone therapy presented with progressive low back pain x 3 weeks with occasional radiation down both lower extremities during ambulation. Pain worsens with postural change. Patient states she was functional prior to onset of pain, but has become progressively debilitated secondary to worsening pain which is now constant. Denies urinary incontinence, saddle anesthesia, headaches, fever, CP, palpitations or dizziness. Denies recent falls or trauma. CT performed in ED showed age indeterminate fracture of L3 (L2 is chronic). Past Patient History - Past Medical History & Family History Past Medical History?: Yes - Past Social History Smoking Status: Never Smoked Alcohol: Social Drugs: Denies Home Situation {Lives}: With Family - CARDIAC Hx Mitral Valve Prolapse: Yes - PULMONARY Other/Comment: SEASONAL ALLERGY - NEUROLOGICAL Hx Neurological Disorder: No - HEENT Hx HEENT Problems: Yes Hx Cataracts: Yes - RENAL Hx Chronic Kidney Disease: No - ENDOCRINE/METABOLIC Hx Endocrine Disorders: No - HEMATOLOGICAL/ONCOLOGICAL Hx Blood Disorders: Yes 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 [place]) - INTEGUMENTARY Hx Dermatological Problems: No - MUSCULOSKELETAL/RHEUMATOLOGICAL Hx Arthritis: Yes - GASTROINTESTINAL Other/Comment: HEARTBURN - GENITOURINARY/GYNECOLOGICAL Hx Genitourinary Disorders: No - PSYCHIATRIC Hx Psychophysiologic Disorder: No Hx Substance Use: No - SURGICAL HISTORY Hx Surgeries: Yes Hx Breast Biopsy: Yes (LEFT) Hx Cataract Extraction: Yes (right) Hx Hysterectomy: Yes (AT AGE 41) - ANESTHESIA Hx Anesthesia: Yes Hx Anesthesia Reactions: No Hx Malignant Hyperthermia: No Meds Allergies/Adverse Reactions: Allergies Allergy/AdvReac Type Severity Reaction Status Date / Time No Known Allergies Allergy Verified 07/05/17 18:32 - Medications Medications: Current Medications Acetaminophen (Tylenol 325mg Tab) 650 mg PO Q6 PRN PRN Reason: Pain, Mild (1-3) Enoxaparin Sodium (Lovenox) 40 mg SC DAILY KEREN PRN Reason: Protocol Last Admin: 12/07/17 08:52 Dose: 40 mg Hydromorphone HCl (Dilaudid) 0.5 mg IVP Q6H PRN PRN Reason: Pain, severe (8-10) Stop: 12/08/17 20:47 Ketorolac Tromethamine (Toradol) 15 mg IVP Q6 PRN PRN Reason: Pain, moderate (4-7) Last Admin: 12/06/17 23:09 Dose: 15 mg Lidocaine (Lidoderm) 1 ea TD DAILY KEREN Last Admin: 12/07/17 08:50 Dose: 1 ea Physical Exam - Constitutional Appears: Well - Respiratory Exam Respiratory Exam: Clear to Auscultation Bilateral - Cardiovascular Exam Cardiovascular Exam: RRR, +S1, +S2 - GI/Abdominal Exam GI & Abdominal Exam: Normal Bowel Sounds - Extremities Exam Extremities exam: Positive for: normal inspection - Back Exam Back exam: paraspinal tenderness, vertebral tenderness (L3) - Neurological Exam Additional comments: sensory/motor 5/5 b/l le Results - Vital Signs Recent Vital Signs: Last Vital Signs Temp 98.4 F 12/07/17 07:54 Pulse 84 12/07/17 07:54 Resp 20 12/07/17 07:54 BP 142/79 12/07/17 07:54 Pulse Ox 98 12/07/17 07:54 - Labs Result Diagrams: 12/07/17 06:00 12/07/17 06:00 Labs: Laboratory Results - last 24 hr 12/06/17 12/06/17 12/06/17 17:59 17:59 18:34 WBC 8.6 RBC 4.56 Hgb 12.3 Hct 37.9 MCV 83.1 MCH 26.9 L MCHC 32.4 L RDW 15.8 H Plt Count 246 MPV 8.4 Neut % (Auto) 78.6 H Lymph % (Auto) 10.6 L [place] % (Auto) 8.5 Eos % (Auto) 1.3 Baso % (Auto) 1.0 Neut # 6.7 Lymph # 0.9 L [place] # 0.7 Eos # 0.1 Baso # 0.1 PT INR APTT Sodium 137 Potassium 4.0 Chloride 104 Carbon Dioxide 23 Anion Gap 14 BUN 21 H Creatinine 0.7 Est GFR ( Amer) > 60 Est GFR (Non-Af Amer) > 60 Random Glucose 97 Calcium 9.2 Total Bilirubin 0.5 AST 30 ALT 33 Alkaline Phosphatase 89 Total Protein 7.2 Albumin 3.9 Globulin 3.3 Albumin/Globulin Ratio 1.2 Urine Color Yellow Urine Clarity Cloudy Urine pH 6.0 Ur Specific [place] 1.021 Urine Protein 30 Urine Glucose (UA) Neg Urine Ketones Negative Urine Blood Small Urine Nitrate Negative Urine Bilirubin Negative Urine Urobilinogen 0.2-1.0 Ur Leukocyte Esterase Trace Urine RBC (Auto) 7 H Urine Microscopic WBC 4 Ur Squamous Epith Cells 1 Urine Bacteria Rare Hyaline Casts 11-20 H 12/06/17 12/07/17 12/07/17 20:40 06:00 06:00 WBC 7.7 RBC 4.48 Hgb 12.2 Hct 37.3 MCV 83.3 MCH 27.3 MCHC 32.8 L RDW 15.7 H Plt Count 228 MPV 8.8 Neut % (Auto) 71.1 Lymph % (Auto) 15.7 L [place] % (Auto) 8.5 Eos % (Auto) 3.9 Baso % (Auto) 0.8 Neut # 5.5 Lymph # 1.2 [place] # 0.7 Eos # 0.3 Baso # 0.1 PT 11.9 INR 1.1 APTT 27.7 Sodium Potassium Chloride Carbon Dioxide Anion Gap BUN Creatinine Est GFR ( Amer) Est GFR (Non-Af Amer) Random Glucose Calcium Total Bilirubin AST ALT Alkaline Phosphatase Total Protein Albumin Globulin Albumin/Globulin Ratio Urine Color Straw Urine Clarity Clear Urine pH 7.0 Ur Specific [place] 1.011 Urine Protein Negative Urine Glucose (UA) Neg Urine Ketones Trace Urine Blood Negative Urine Nitrate Negative Urine Bilirubin Negative Urine Urobilinogen 0.2-1.0 Ur Leukocyte Esterase Neg Urine RBC (Auto) < 1 Urine Microscopic WBC 1 Ur Squamous Epith Cells Urine Bacteria Hyaline Casts 12/07/17 06:00 WBC RBC Hgb Hct MCV MCH MCHC RDW Plt Count MPV Neut % (Auto) Lymph % (Auto) [place] % (Auto) Eos % (Auto) Baso % (Auto) Neut # Lymph # [place] # Eos # Baso # PT INR APTT Sodium 138 Potassium 3.5 L Chloride 104 Carbon Dioxide 23 Anion Gap 15 BUN 15 Creatinine 0.6 L Est GFR ( Amer) > 60 Est GFR (Non-Af Amer) > 60 Random Glucose 82 Calcium 8.6 Total Bilirubin AST ALT Alkaline Phosphatase Total Protein Albumin Globulin Albumin/Globulin Ratio Urine Color Urine Clarity Urine pH Ur Specific [place] Urine Protein Urine Glucose (UA) Urine Ketones Urine Blood Urine Nitrate Urine Bilirubin Urine Urobilinogen Ur Leukocyte Esterase Urine RBC (Auto) Urine Microscopic WBC Ur Squamous Epith Cells Urine Bacteria Hyaline Casts Assessment & Plan - Assessment and Plan (Free Text) Assessment: 82 yo female w/ painful presumed acute/subacute VCF Plan: Please obtain MRI lumbar spine w/o contrast If MRI reveals acute/subacute VCF, will consider and likely plan for percutaneous vertebral augmentation Please call IR with any questions
--- NOTE | 2017-12-07 10:52 | CP.PCM.PN ---
Subjective - Date & Time of Evaluation Date of Evaluation: 12/07/17 Time of Evaluation: 07:00 - Subjective Subjective: 82 year old female patient seen and evaluated at bedside. Patient hemodynamically stable and NAD. No acute events overnight. Reports 6/10 pain to her lower back that is worse when standing and with ambulation, controlled. Denies any lower extremity weakness or diminished sensation. Endorses that she had difficulty urinating yesterday and camilo was placed. Patient reports that her last bowel movement was 2 days ago with urge to pass stool today. Denies saddle anesthesia, headache, dizziness, balance issues, nausea, vomiting, fever , chills, palpitations, abd pain. Objective - Vital Signs/Intake and Output Vital Signs (last 24 hours): Temp Pulse Resp BP Pulse Ox 98.4 F 84 20 142/79 98 12/07/17 07:54 12/07/17 07:54 12/07/17 07:54 12/07/17 07:54 12/07/17 07:54 - Medications Medications: Current Medications Acetaminophen (Tylenol 325mg Tab) 650 mg PO Q6 PRN PRN Reason: Pain, Mild (1-3) Enoxaparin Sodium (Lovenox) 40 mg SC DAILY [facility] PRN Reason: Protocol Last Admin: 12/07/17 08:52 Dose: 40 mg Hydromorphone HCl (Dilaudid) 0.5 mg IVP Q6H PRN PRN Reason: Pain, severe (8-10) Stop: 12/08/17 20:47 Ketorolac Tromethamine (Toradol) 15 mg IVP Q6 PRN PRN Reason: Pain, moderate (4-7) Last Admin: 12/06/17 23:09 Dose: 15 mg Lidocaine (Lidoderm) 1 ea TD DAILY [facility] Last Admin: 12/07/17 08:50 Dose: 1 ea - Labs Labs: 12/07/17 06:00 12/07/17 06:00 PT 11.9 Seconds (9.8-13.1) 12/07/17 06:00 INR 1.1 (0.9-1.2) 12/07/17 06:00 APTT 27.7 Seconds (25.6-37.1) 12/07/17 06:00 - Constitutional Appears: Well, Non-toxic, No Acute Distress - Head Exam Head Exam: ATRAUMATIC, NORMAL INSPECTION, NORMOCEPHALIC - Eye Exam Eye Exam: EOMI, Normal appearance Pupil Exam: NORMAL ACCOMODATION - ENT Exam ENT Exam: Mucous Membranes Moist - Neck Exam Neck Exam: Full ROM. absent: Tenderness - Respiratory Exam Respiratory Exam: Clear to Ausculation Bilateral, NORMAL BREATHING PATTERN. absent: Rales, Rhonchi, Wheezes - Cardiovascular Exam Cardiovascular Exam: REGULAR RHYTHM, +S1, +S2, Murmur - GI/Abdominal Exam GI & Abdominal Exam: Soft, Normal Bowel Sounds - Exam Additional comments: Camilo in place - Extremities Exam Extremities Exam: Full ROM, Normal Inspection. absent: Pedal Edema, Tenderness - Back Exam Back Exam: paraspinal tenderness (left sided), vertebral tenderness (L3-L4 ) Additional comments: Straight leg test neg B/L. - Neurological Exam Neurological Exam: Alert, Awake, Oriented x3 - Psychiatric Exam Psychiatric exam: Normal Affect, Normal Mood - Skin Skin Exam: Dry, Intact, Normal Color, Warm Assessment and Plan - Assessment and Plan (Free Text) Assessment: 82 y/o F with Hx of breast ca on remission presents for compression deformity of lumbar spine and intractable pain. (1) Compression deformity lumbar spine and spinal stenosis - Lumbar CT (12/06/17): -Dextroscoliosis. Severe compression deformity of L2 with bony retropulsion, all of indeterminate age. -Mild central compression deformity of L3. -Central spinal stenosis at multiple levels, most pronounced at L1-2 and L2- 3. -Multilevel neural foraminal stenosis. - Pain control: Tylenol 650mg PO, Toradol 15mg IV, Dilaudid 0.5mg IV, Lidoderm TD - MRI lumbar spine w/o contrast ordered - IR consulted, consider percutaneous vertebral augmentation if MRI reveals acute/subacute VCF - Pain management consulted, f/u recs - Fall precautions - PT eval and treat (3) Urinary retention - Acute - R/O spinal cord compression - D/C camilo today for void trial - f/u UCx - monitor I&Os (4) DVT prophylaxis -Lovenox 40 mg SQ daily -SCDs PRN
--- NOTE | 2017-12-07 11:25 | RAD ---
HISTORY: L back and chest pain COMPARISON: No prior. TECHNIQUE: Chest PA and lateral FINDINGS: LUNGS: No active pulmonary disease. PLEURA: No significant pleural effusion identified. No pneumothorax apparent. CARDIOVASCULAR: Normal. OSSEOUS STRUCTURES: Multiple vertebral compression fractures are demonstrated. L1 vertebral compression fracture demonstrated as previously described. There is mild anterior wedge compression deformity of T11 vertebra. There is severe compression deformity of the T10 vertebra. There is severe compression deformity of the T8 vertebra. T10 compression deformity is new since prior examination. T8 compression fracture is old and is seen on prior chest radiograph of 07/13/2016. VISUALIZED UPPER ABDOMEN: Normal. OTHER FINDINGS: None. IMPRESSION: New severe T10 vertebral compression fracture. Old severe T8 compression fracture. Mild anterior wedge compression deformity of T11 vertebra, age indeterminate. Old L1 compression fracture.
--- NOTE | 2017-12-07 14:27 | CARD ---
APPROVED REPORT EKG Measurement Heart [id number] <Conclusion> Sinus tachycardia Inferior infarct, age undetermined Abnormal ECG
[2017-12-07] MEDS ORDERED: Acetaminophen-Codeine 300/30 mg Tab PO PRN (17:14)
--- NOTE | 2017-12-07 17:17 | CP.PCM.CON ---
History of Present Illness - History of Present Illness History of Present Illness: Dr Arevalo PMR consultation on Krystin Finney, born 1935, who has been admitted to [facility] following an admission with severe intractable LBP. This has been present since 11/14/17. MRI revealed a severe L2 compression fracture of indeterminate age with retropulsion of bone. She denies numbness or tingling in the LE. She had been very active prior to this admission. Review of Systems - Constitutional Constitutional: absent: Anorexia, Chills - EENT Ears: absent: Ear Discharge, Ear Pain Nose/Mouth/Throat: absent: Nasal Congestion, Nasal Discharge - Cardiovascular Cardiovascular: absent: Chest Pain - Respiratory Respiratory: absent: Dyspnea - Gastrointestinal Gastrointestinal: Change in Bowel Habits. absent: Belching, Constipation, Cramping - Musculoskeletal Musculoskeletal: Back Pain (not that bad when in bed) - Neurological Neurological: absent: Abnormal Movements, Numbness, Radicular Pain - Psychiatric Psychiatric: absent: Behavioral Changes Past Patient History - Past Medical History & Family History Past Medical History?: Yes - Past Social History Smoking Status: Never Smoked Alcohol: Social Drugs: Denies Home Situation {Lives}: With Family - CARDIAC Hx Mitral Valve Prolapse: Yes - PULMONARY Other/Comment: SEASONAL ALLERGY - NEUROLOGICAL Hx Neurological Disorder: No - HEENT Hx HEENT Problems: Yes Hx Cataracts: Yes - RENAL Hx Chronic Kidney Disease: No - ENDOCRINE/METABOLIC Hx Endocrine Disorders: No - HEMATOLOGICAL/ONCOLOGICAL Hx Blood Disorders: Yes 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 [place]) - INTEGUMENTARY Hx Dermatological Problems: No - MUSCULOSKELETAL/RHEUMATOLOGICAL Hx Arthritis: Yes - GASTROINTESTINAL Other/Comment: HEARTBURN - GENITOURINARY/GYNECOLOGICAL Hx Genitourinary Disorders: No - PSYCHIATRIC Hx Psychophysiologic Disorder: No Hx Substance Use: No - SURGICAL HISTORY Hx Surgeries: Yes Hx Breast Biopsy: Yes (LEFT) Hx Cataract Extraction: Yes (right) Hx Hysterectomy: Yes (AT AGE 41) - ANESTHESIA Hx Anesthesia: Yes Hx Anesthesia Reactions: No Hx Malignant Hyperthermia: No Meds Allergies/Adverse Reactions: Allergies Allergy/AdvReac Type Severity Reaction Status Date / Time No Known Allergies Allergy Verified 07/05/17 18:32 - Medications Medications: Current Medications Acetaminophen (Tylenol 325mg Tab) 650 mg PO Q6 PRN PRN Reason: Pain, Mild (1-3) Last Admin: 12/07/17 12:16 Dose: 650 mg Acetaminophen/Codeine Phosphate (Tylenol/Codeine 300 Mg/30 Mg) 1 tab PO Q4 PRN PRN Reason: pain 4-7/10 Calcitonin [place] (Miacalcin) 200 intlu ALIYAH DAILY [facility] Enoxaparin Sodium (Lovenox) 40 mg SC DAILY [facility] PRN Reason: Protocol Last Admin: 12/07/17 08:52 Dose: 40 mg Hydromorphone HCl (Dilaudid) 0.5 mg IVP Q6H PRN PRN Reason: Pain, severe (8-10) Stop: 12/08/17 20:47 Ketorolac Tromethamine (Toradol) 15 mg IVP Q6 PRN PRN Reason: Pain, moderate (4-7) Last Admin: 12/06/17 23:09 Dose: 15 mg Lidocaine (Lidoderm) 1 ea TD DAILY [facility] Last Admin: 12/07/17 08:50 Dose: 1 ea Loratadine (Claritin) 10 mg PO DAILY [facility] Last Admin: 12/07/17 16:14 Dose: 10 mg Tamsulosin HCl (Flomax) 0.4 mg PO DAILY [facility] Last Admin: 12/07/17 16:14 Dose: 0.4 mg Physical Exam - Constitutional Appears: Non-toxic, No Acute Distress - Head Exam Head Exam: ATRAUMATIC, NORMAL INSPECTION, NORMOCEPHALIC - Eye Exam Eye Exam: EOMI - ENT Exam ENT Exam: Mucous Membranes Moist - Respiratory Exam Respiratory Exam: NORMAL BREATHING PATTERN - Cardiovascular Exam Cardiovascular Exam: REGULAR RHYTHM - GI/Abdominal Exam GI & Abdominal Exam: absent: Distended, Firm - Psychiatric Exam Psychiatric exam: Normal Affect, Normal Mood Results - Vital Signs Recent Vital Signs: Last Vital Signs Temp 97.5 F L 12/07/17 15:54 Pulse 94 H 12/07/17 15:54 Resp 20 12/07/17 15:54 BP 113/66 12/07/17 15:54 Pulse Ox 97 12/07/17 15:54 - Labs Result Diagrams: 12/07/17 06:00 12/07/17 06:00 Labs: Laboratory Results - last 24 hr 12/06/17 12/06/17 12/06/17 17:59 17:59 18:34 WBC 8.6 RBC 4.56 Hgb 12.3 Hct 37.9 MCV 83.1 MCH 26.9 L MCHC 32.4 L RDW 15.8 H Plt Count 246 MPV 8.4 Neut % (Auto) 78.6 H Lymph % (Auto) 10.6 L [place] % (Auto) 8.5 Eos % (Auto) 1.3 Baso % (Auto) 1.0 Neut # 6.7 Lymph # 0.9 L [place] # 0.7 Eos # 0.1 Baso # 0.1 PT INR APTT Sodium 137 Potassium 4.0 Chloride 104 Carbon Dioxide 23 Anion Gap 14 BUN 21 H Creatinine 0.7 Est GFR ( Amer) > 60 Est GFR (Non-Af Amer) > 60 Random Glucose 97 Calcium 9.2 Total Bilirubin 0.5 AST 30 ALT 33 Alkaline Phosphatase 89 Total Protein 7.2 Albumin 3.9 Globulin 3.3 Albumin/Globulin Ratio 1.2 Urine Color Yellow Urine Clarity Cloudy Urine pH 6.0 Ur Specific [place] 1.021 Urine Protein 30 Urine Glucose (UA) Neg Urine Ketones Negative Urine Blood Small Urine Nitrate Negative Urine Bilirubin Negative Urine Urobilinogen 0.2-1.0 Ur Leukocyte Esterase Trace Urine RBC (Auto) 7 H Urine Microscopic WBC 4 Ur Squamous Epith Cells 1 Urine Bacteria Rare Hyaline Casts 11-20 H 12/06/17 12/07/17 12/07/17 20:40 06:00 06:00 WBC 7.7 RBC 4.48 Hgb 12.2 Hct 37.3 MCV 83.3 MCH 27.3 MCHC 32.8 L RDW 15.7 H Plt Count 228 MPV 8.8 Neut % (Auto) 71.1 Lymph % (Auto) 15.7 L [place] % (Auto) 8.5 Eos % (Auto) 3.9 Baso % (Auto) 0.8 Neut # 5.5 Lymph # 1.2 [place] # 0.7 Eos # 0.3 Baso # 0.1 PT 11.9 INR 1.1 APTT 27.7 Sodium Potassium Chloride Carbon Dioxide Anion Gap BUN Creatinine Est GFR ( Amer) Est GFR (Non-Af Amer) Random Glucose Calcium Total Bilirubin AST ALT Alkaline Phosphatase Total Protein Albumin Globulin Albumin/Globulin Ratio Urine Color Straw Urine Clarity Clear Urine pH 7.0 Ur Specific [place] 1.011 Urine Protein Negative Urine Glucose (UA) Neg Urine Ketones Trace Urine Blood Negative Urine Nitrate Negative Urine Bilirubin Negative Urine Urobilinogen 0.2-1.0 Ur Leukocyte Esterase Neg Urine RBC (Auto) < 1 Urine Microscopic WBC 1 Ur Squamous Epith Cells Urine Bacteria Hyaline Casts 12/07/17 06:00 WBC RBC Hgb Hct MCV MCH MCHC RDW Plt Count MPV Neut % (Auto) Lymph % (Auto) [place] % (Auto) Eos % (Auto) Baso % (Auto) Neut # Lymph # [place] # Eos # Baso # PT INR APTT Sodium 138 Potassium 3.5 L Chloride 104 Carbon Dioxide 23 Anion Gap 15 BUN 15 Creatinine 0.6 L Est GFR ( Amer) > 60 Est GFR (Non-Af Amer) > 60 Random Glucose 82 Calcium 8.6 Total Bilirubin AST ALT Alkaline Phosphatase Total Protein Albumin Globulin Albumin/Globulin Ratio Urine Color Urine Clarity Urine pH Ur Specific [place] Urine Protein Urine Glucose (UA) Urine Ketones Urine Blood Urine Nitrate Urine Bilirubin Urine Urobilinogen Ur Leukocyte Esterase Urine RBC (Auto) Urine Microscopic WBC Ur Squamous Epith Cells Urine Bacteria Hyaline Casts Assessment & Plan - Assessment and Plan (Free Text) Assessment: acute lumbar pain with severe L2 compression fracture with retropulsion of bone MRI was to be performed. No neurologica complaints. LE has no focal weakness she was able to lift leg off bed while supine without any pain Will start on Calcitonin Nasal spray and tylenol #3
[2017-12-07] MEDS ORDERED: Alum-Mag Hydrox-Simethicone Susp (30 mL) PO ONE (18:48)
[2017-12-08 07:40] LABS: HEMOGLOBIN 12.5 g/dL (12.0-16.0); MEAN CELL VOLUME 83.8 fl (81.0-99.0); MEAN CORPUSCULAR HEMOGLOBIN 26.8 pg (27.0-31.0); RBC 4.67 Mil/uL (3.80-5.20); RED CELL DISTRIBUTION WIDTH 15.5 % (11.5-14.5); WHITE BLOOD COUNT 7.4 K/uL (4.8-10.8)
[2017-12-08 07:49] LABS: BLOOD UREA NITROGEN 17 mg/dl (7-17); CALCIUM 8.7 mg/dL (8.4-10.2); GFR AFRICAN-AMERICAN > 60; GFR NON-AFRICAN AMERICAN > 60
[2017-12-08] MEDS: Enoxaparin 40 mg Syringe SC SCH (08:32)
[2017-12-08] MEDS: Lidocaine 5% Patch TD SCH (08:34)
[2017-12-08] MEDS: Calcitonin 200 Int Units/Inh Nasal Spray (3.7 ml) NAS SCH (09:34)
--- NOTE | 2017-12-08 12:02 | PCM.IRP ---
History of Present Illness - History of Present Illness History of Present Illness: IR consulted for kyphoplasty. MRI of L spine reviewed. The compression deformity of L3 is chronic. Kyphoplasty will offer no benefit. Please re consult as needed. Thank you. Objective - Vital Signs/Intake and Output Vital Signs (last 24 hours): Vital Signs - 24 hr 12/07/17 12/07/17 12/07/17 15:54 17:00 20:55 Temperature 97.5 F L 97.5 F L 98.5 F Pulse Rate 94 H 95 H Respiratory 20 19 Rate Blood Pressure 113/66 116/75 O2 Sat by Pulse 97 97 Oximetry 12/07/17 12/08/17 23:52 08:12 Temperature 97.9 F 98.5 F Pulse Rate 85 87 Respiratory 18 18 Rate Blood Pressure 126/80 129/80 O2 Sat by Pulse 97 97 Oximetry - Medications Medications: Current Medications Acetaminophen (Tylenol 325mg Tab) 650 mg PO Q6 PRN PRN Reason: Pain, Mild (1-3) Last Admin: 12/07/17 12:16 Dose: 650 mg Acetaminophen/Codeine Phosphate (Tylenol/Codeine 300 Mg/30 Mg) 1 tab PO Q4 PRN PRN Reason: pain 4-7/10 Calcitonin [place] (Miacalcin) 200 intlu ALIYAH DAILY [facility] Last Admin: 12/08/17 09:34 Dose: 1 spr Enoxaparin Sodium (Lovenox) 40 mg SC DAILY [facility] PRN Reason: Protocol Last Admin: 12/08/17 08:32 Dose: 40 mg Hydromorphone HCl (Dilaudid) 0.5 mg IVP Q6H PRN PRN Reason: Pain, severe (8-10) Stop: 12/08/17 20:47 Ketorolac Tromethamine (Toradol) 15 mg IVP Q6 PRN PRN Reason: Pain, moderate (4-7) Last Admin: 12/07/17 21:02 Dose: 15 mg Lidocaine (Lidoderm) 1 ea TD DAILY [facility] Last Admin: 12/08/17 08:34 Dose: 1 ea Loratadine (Claritin) 10 mg PO DAILY [facility] Last Admin: 12/08/17 08:34 Dose: 10 mg Tamsulosin HCl (Flomax) 0.4 mg PO DAILY [facility] Last Admin: 12/08/17 08:34 Dose: 0.4 mg - Labs Labs (last 24 hours): Laboratory Results - last 24 hr 12/08/17 12/08/17 06:30 06:30 WBC 7.4 RBC 4.67 Hgb 12.5 Hct 39.2 MCV 83.8 MCH 26.8 L MCHC 32.0 L RDW 15.5 H Plt Count 238 Sodium 134 Potassium 3.9 Chloride 98 Carbon Dioxide 26 Anion Gap 14 BUN 17 Creatinine 0.7 Est GFR ( Amer) > 60 Est GFR (Non-Af Amer) > 60 Random Glucose 94 Calcium 8.7
--- NOTE | 2017-12-08 12:53 | CP.PCM.PN ---
Subjective - Date & Time of Evaluation Date of Evaluation: 12/08/17 Time of Evaluation: 08:00 - Subjective Subjective: 82 year old female patient seen and evaluated at bedside. Patient hemodynamically stable and NAD. No acute events overnight. Reports continued lower back pain, well-controlled. No complaints of lower extremity weakness or paresthesias. Hill was discontinued yesterday and patient able to void freely. +BM yesterday. Denies saddle anesthesia, headache, dizziness, balance issues, nausea, vomiting, fever, chills, palpitations, abd pain. Objective - Vital Signs/Intake and Output Vital Signs (last 24 hours): Temp Pulse Resp BP Pulse Ox 98.5 F 87 18 129/80 97 12/08/17 08:12 12/08/17 08:12 12/08/17 08:12 12/08/17 08:12 12/08/17 08:12 - Medications Medications: Current Medications Acetaminophen (Tylenol 325mg Tab) 650 mg PO Q6 PRN PRN Reason: Pain, Mild (1-3) Last Admin: 12/07/17 12:16 Dose: 650 mg Acetaminophen/Codeine Phosphate (Tylenol/Codeine 300 Mg/30 Mg) 1 tab PO Q4 PRN PRN Reason: pain 4-7/10 Calcitonin [place] (Miacalcin) 200 intlu ALIYAH DAILY [facility] Last Admin: 12/08/17 09:34 Dose: 1 spr Enoxaparin Sodium (Lovenox) 40 mg SC DAILY [facility] PRN Reason: Protocol Last Admin: 12/08/17 08:32 Dose: 40 mg Hydromorphone HCl (Dilaudid) 0.5 mg IVP Q6H PRN PRN Reason: Pain, severe (8-10) Stop: 12/08/17 20:47 Ketorolac Tromethamine (Toradol) 15 mg IVP Q6 PRN PRN Reason: Pain, moderate (4-7) Last Admin: 12/07/17 21:02 Dose: 15 mg Lidocaine (Lidoderm) 1 ea TD DAILY [facility] Last Admin: 12/08/17 08:34 Dose: 1 ea Loratadine (Claritin) 10 mg PO DAILY [facility] Last Admin: 12/08/17 08:34 Dose: 10 mg Tamsulosin HCl (Flomax) 0.4 mg PO DAILY [facility] Last Admin: 12/08/17 08:34 Dose: 0.4 mg - Labs Labs: 12/08/17 06:30 12/08/17 06:30 PT 11.9 Seconds (9.8-13.1) 12/07/17 06:00 INR 1.1 (0.9-1.2) 12/07/17 06:00 APTT 27.7 Seconds (25.6-37.1) 12/07/17 06:00 - Constitutional Appears: Well, Non-toxic, No Acute Distress - Head Exam Head Exam: ATRAUMATIC, NORMAL INSPECTION, NORMOCEPHALIC - Eye Exam Eye Exam: EOMI, Normal appearance Pupil Exam: NORMAL ACCOMODATION, PERRL - ENT Exam ENT Exam: Mucous Membranes Moist, Normal Exam - Neck Exam Neck Exam: Full ROM, Normal Inspection. absent: Tenderness - Respiratory Exam Respiratory Exam: Clear to Ausculation Bilateral, NORMAL BREATHING PATTERN. absent: Respiratory Distress - Cardiovascular Exam Cardiovascular Exam: REGULAR RHYTHM, +S1, +S2 - GI/Abdominal Exam GI & Abdominal Exam: Soft, Normal Bowel Sounds. absent: Tenderness - Extremities Exam Extremities Exam: Full ROM, Normal Inspection. absent: Calf Tenderness, Pedal Edema, Tenderness - Back Exam Back Exam: paraspinal tenderness (left side tenderness to palpation), vertebral tenderness (L2/L3) Additional comments: Straight leg test neg B/L. - Neurological Exam Neurological Exam: Alert, Awake, Oriented x3 - Psychiatric Exam Psychiatric exam: Normal Affect, Normal Mood - Skin Skin Exam: Dry, Intact, Normal Color, Warm Assessment and Plan - Assessment and Plan (Free Text) Assessment: 82 y/o F with Hx of breast ca on remission presents for compression deformity of lumbar spine and intractable pain. (1) Pathologic compression fracture - Lumbar CT (12/06/17): -Dextroscoliosis. Severe compression deformity of L2 with bony retropulsion, all of indeterminate age. -Mild central compression deformity of L3. - CXR (12/06/17): -New severe T10 vertebral compression fracture -Old T8 compression fracture -Mild anterior wedge compression deformity of T11, age indeterminate -Old L1 compression fracture - Lumbar spine MRI (12/07/17): -Early chronic L2 compression fracture. Limited chronic L3 compression fracture. -Additional early chronic T11 compression fracture incidentally noted. - Pain control: Tylenol 650mg PO, Tylenol #3 PO, Toradol 15mg IV, Dilaudid 0.5mg IV, Lidoderm TD - IR consulted, not a candidate for kyphoplasty - Pain management consulted, recs appreciated; no forward flexion and no lifting - Fall precautions - PT eval and treat - patient refusing abdominal binder; recommending d/c to [facility] (2) Spinal stenosis - No LE weakness, no neurological complaints - Lumbar CT (12/06/17): -Central spinal stenosis at multiple levels, most pronounced at L1-2 and L2- 3. -Multilevel neural foraminal stenosis. - Lumbar spine MRI (12/07/17): -Borderline L1-2 and mild L2-3 central canal stenoses as well as bilateral neural foraminal stenoses -No severe spinal stenosis identified (3) Osteoporosis - Started on Calcitonin nasal spray per pain mgmt (3) Urinary retention - Resolved - Flomax 0.4mg PO QD - monitor I&Os (4) DVT prophylaxis -Lovenox 40 mg SQ daily -SCDs PRN
--- NOTE | 2017-12-08 16:59 | MRI ---
PROCEDURE: MR LUMBAR SPINE WITHOUT CONTRAST HISTORY: L2/L3 fracture COMPARISON: Lumbar spine CT 12/07/2017 and lumbar spine radiographs 11/16/2017. TECHNIQUE: Multiecho multiplanar sequences were performed through the lumbar spine without the use of intravenous contrast. FINDINGS: A dextroscoliotic lumbar spinal deformity is reiterated without definite spondylolisthesis identified. The anteroposterior is not significantly disturbed. There is no definite spondylolisthesis and there is an early chronic severe fracture at L2 with limited edema at the superior margins of the vertebral body identified was disc height is not significantly change greater prior lumbar spine x-ray series dated 11/16/2017. Chronic compression fracture is mild at L3 swells incidentally at T12. A moderate to severe early chronic compression fracture is incidentally noted T11. No destructive bony Marrow signal change. Conus medullaris is normal in in intrinsic signal terminating at L2 with prevertebral paraspinal soft tissues unremarkable throughout. Multilevel facet arthropathy is appreciated diffusely. Prevertebral paraspinal soft tissues appear diffusely unremarkable. T12-L1: No disc herniation, spinal canal stenosis or neural foraminal narrowing. Minimal disc bulging is encountered here. L1-2: No disc herniation is encountered however retropulsion of the superior endplate and accompanying disc bulge results and a borderline central stenosis at this level with moderate bilateral neural foraminal stenoses identified. Moderate facet joint degenerative changes are identified symmetrically. L2-3: A mild central stenosis identified due to retropulsion of the inferior L2 endplate and accompanying disc bulge with mild central canal stenosis identified greater at the left and right sides, particularly the left lateral recess. Moderate right and borderline left neural foraminal stenoses are appreciated. No disc herniation. L3-4: Limited disc bulge is appreciate with gross facet joint degenerative change resulting in right greater than left lateral recess stenosis with a mild generalized central canal stenosis evident. Mild right and moderate left degenerative neural foraminal stenoses are identified. No disc herniation. L4-5: Disc osteophyte complex and prominent facet joint degenerative changes results and a borderline central stenosis concentrated at the lateral recesses symmetrically. Disc herniation. Mild left and moderate right degenerative neural foraminal stenoses are identified. L5-S1: A [id number] generalized disc osteophyte complex is appreciate combining with moderate facet joint degenerative changes causing lateral recess stenosis and borderline central canal stenosis. No disc herniation. Moderate right and mild to moderate left degenerative neural foraminal stenosis is identified. OTHER FINDINGS: None. IMPRESSION: 1. Early chronic L2 compression fracture. Limited chronic L3 compression fracture. Additional early chronic T11 compression fracture is incidentally noted. This is based on prior lumbar spine radiograph 11/16/2017. 2. Retropulsion of the upper lower endplates at L2 contributes to borderline L1-2 and mild L2-3 central canal stenoses as well as bilateral neural foraminal stenoses as per above. 3. No definitive disc herniation throughout the exam. No severe spinal stenosis identified.
[2017-12-08 23:39] VITALS: TEMP 98.1
[2017-12-09 07:39] VITALS: BP 111/71; PULSE 88; RESP 20; O2SAT 95
--- NOTE | 2017-12-09 08:41 | CP.PCM.DIS ---
Provider - Provider Date of Admission: 12/06/17 19:02 Attending physician: Jeradro Alexnader MD Time Spent in preparation of Discharge (in minutes): 45 Diagnosis - Discharge Diagnosis (1) Compression fracture of lumbar vertebra Status: Acute Comment: Patient found to have L2/L3 and T11 compression fractures determined to be chronic with small possible acute changes not amenable to vertebroplasty intervention at this time. Patient is not able to tolerate binders or braces and is declining these measures. PT evaluation is recommending CLAUS. Pain is controlled with NSAIDs and Tylenol with Codeine. She will be d/c'd to [facility] today. (2) Urinary retention Status: Acute Comment: Initially concern for neurological involvement, but negative physical exam and "trial of void" was successful and thought to be secondary to pain vs. asymptomatic UTI but UCx was negative for the latter. She was also started on Flomax and has had no side effects from the addition of that medication. Hospital Course - Lab Results Lab Results: Micro Results 12/06/17 20:40 Urine,Catheterized Urine Culture - Final No Growth (<1,000 CFU/ML) Most Recent Lab Values WBC 7.4 K/uL (4.8-10.8) 12/08/17 06:30 RBC 4.67 Mil/uL (3.80-5.20) 12/08/17 06:30 Hgb 12.5 g/dL (12.0-16.0) 12/08/17 06:30 Hct 39.2 % (34.0-47.0) 12/08/17 06:30 MCV 83.8 fl (81.0-99.0) 12/08/17 06:30 MCH 26.8 pg (27.0-31.0) L 12/08/17 06:30 MCHC 32.0 g/dL (33.0-37.0) L 12/08/17 06:30 RDW 15.5 % (11.5-14.5) H 12/08/17 06:30 Plt Count 238 K/uL (130-400) 12/08/17 06:30 MPV 8.8 fl (7.2-11.7) 12/07/17 06:00 Neut % (Auto) 71.1 % (50.0-75.0) 12/07/17 06:00 Lymph % (Auto) 15.7 % (20.0-40.0) L 12/07/17 06:00 Reeves % (Auto) 8.5 % (0.0-10.0) 12/07/17 06:00 Eos % (Auto) 3.9 % (0.0-4.0) 12/07/17 06:00 Baso % (Auto) 0.8 % (0.0-2.0) 12/07/17 06:00 Neut # 5.5 K/uL (1.8-7.0) 12/07/17 06:00 Lymph # 1.2 K/uL (1.0-4.3) 12/07/17 06:00 Reeves # 0.7 K/uL (0.0-0.8) 12/07/17 06:00 Eos # 0.3 K/uL (0.0-0.7) 12/07/17 06:00 Baso # 0.1 K/uL (0.0-0.2) 12/07/17 06:00 PT 11.9 Seconds (9.8-13.1) 12/07/17 06:00 INR 1.1 (0.9-1.2) 12/07/17 06:00 APTT 27.7 Seconds (25.6-37.1) 12/07/17 06:00 Sodium 134 mmol/l (132-148) 12/08/17 06:30 Potassium 3.9 MMOL/L (3.6-5.0) 12/08/17 06:30 Chloride 98 mmol/L (98-107) 12/08/17 06:30 Carbon Dioxide 26 mmol/L (22-30) 12/08/17 06:30 Anion Gap 14 (10-20) 12/08/17 06:30 BUN 17 mg/dl (7-17) 12/08/17 06:30 Creatinine 0.7 mg/dl (0.7-1.2) 12/08/17 06:30 Est GFR ( Amer) > 60 12/08/17 06:30 Est GFR (Non-Af Amer) > 60 12/08/17 06:30 Random Glucose 94 mg/dL (65-105) 12/08/17 06:30 Calcium 8.7 mg/dL (8.4-10.2) 12/08/17 06:30 Total Bilirubin 0.5 mg/dl (0.2-1.3) 12/06/17 17:59 AST 30 U/L (14-36) 18 17:59 ALT 33 U/L (9-52) 12/06/17 17:59 Alkaline Phosphatase 89 U/L (38-126) 12/06/17 17:59 Total Protein 7.2 G/DL (6.3-8.2) 12/06/17 17:59 Albumin 3.9 g/dL (3.5-5.0) 12/06/17 17:59 Globulin 3.3 gm/dL (2.2-3.9) 12/06/17 17:59 Albumin/Globulin Ratio 1.2 (1.0-2.1) 12/06/17 17:59 Urine Color Straw (YELLOW) 12/06/17 20:40 Urine Clarity Clear (Clear) 12/06/17 20:40 Urine pH 7.0 (5.0-8.0) 12/06/17 20:40 Ur Specific [place] 1.011 (1.003-1.030) 12/06/17 20:40 Urine Protein Negative mg/dL (NEGATIVE) 12/06/17 20:40 Urine Glucose (UA) Neg mg/dL (Normal) 12/06/17 20:40 Urine Ketones Trace mg/dL (NEGATIVE) 12/06/17 20:40 Urine Blood Negative (NEGATIVE) 12/06/17 20:40 Urine Nitrate Negative (NEGATIVE) 12/06/17 20:40 Urine Bilirubin Negative (NEGATIVE) 12/06/17 20:40 Urine Urobilinogen 0.2-1.0 mg/dL (0.2-1.0) 12/06/17 20:40 Ur Leukocyte Esterase Neg [place]/uL (Negative) 12/06/17 20:40 Urine RBC (Auto) < 1 /hpf (0-3) 12/06/17 20:40 Urine Microscopic WBC 1 /hpf (0-5) 12/06/17 20:40 Ur Squamous Epith Cells 1 /hpf (0-5) 18 18:34 Urine Bacteria Rare (<OCC) 12/06/17 18:34 Hyaline Casts 11-20 /hpf (0-2) H 12/06/17 18:34 - Hospital Course Hospital Course: 82F admitted for acute on chronic lower back pain with urinary retention. Evaluation proved to be acute on chronic atraumatic compression fracture secondary to osteoporosis. The urinary retention was secondary to pain. Consultants Dr Arevalo: Tylenol with Codeine, Calcitonin Nasal [place] Dr Harry: IR states no vertebroplasty indicated at this time. Discharge Exam - Head Exam Head Exam: ATRAUMATIC, NORMAL INSPECTION, NORMOCEPHALIC - Eye Exam Eye Exam: EOMI, Normal appearance, PERRL - ENT Exam ENT Exam: Mucous Membranes Moist, Normal Exam - Neck Exam Neck exam: Full Rom, Normal Inspection - Respiratory Exam Respiratory Exam: Clear to PA & Lateral, NORMAL BREATHING PATTERN. absent: Rales, Rhonchi, Wheezes - Cardiovascular Exam Cardiovascular Exam: REGULAR RHYTHM, +S1, +S2 - GI/Abdominal Exam GI & Abdominal Exam: Normal Bowel Sounds, Soft. absent: Tenderness - Extremities Exam Extremities exam: full ROM, normal capillary refill, normal inspection, pedal pulses present - Back Exam Back exam: vertebral tenderness (At sites of compression fracture) - Neurological Exam Neurological exam: Alert, CN II-XII Intact, Normal Gait, Oriented x3, Reflexes Normal - Psychiatric Exam Psychiatric exam: Normal Affect, Normal Mood - Skin Skin Exam: Dry, Intact Discharge Plan - Discharge Medications Prescriptions: Acetaminophen/Codeine [Tylenol/Codeine 300 MG/30 MG] 1 tab PO Q4 PRN #20 tab PRN Reason: pain 4-7/10 Calcitonin ([place]) [Miacalcin] 200 intlu ALIYAH DAILY 30 Days spr Lidocaine 5% [Lidoderm] 1 ea TD DAILY 30 Days patch Loratadine [Claritin] 10 mg PO DAILY 30 Days tab Tamsulosin [Flomax] 0.4 mg PO DAILY 30 Days cap - Follow Up Plan Condition: FAIR Disposition: REHAB FACILITY/REHAB UNIT Patient education suggested?: Yes Instructions: Back Pain (GEN), Calcium and Osteoporosis (DC), Vertebroplasty ( GEN), Vertebral Compression Fracture (DC) Referrals: Jerardo Alexander MD [Family Provider] - Paulo Young MD [Staff Provider] -
[2017-12-09] MEDS: Lidocaine 5% Patch TD SCH (08:44)
[2017-12-09] MEDS: Enoxaparin 40 mg Syringe SC SCH (08:45)
[2017-12-09] MEDS: Calcitonin 200 Int Units/Inh Nasal Spray (3.7 ml) NAS SCH (08:45)
== END 2017-12-09 15:00 | DRG 544 ==
LOC: H.ER 15:33 → H.ERHOLD 19:02 → H.MEDSURG1 20:44
PROVIDERS: ADMIT Family Medicine; ATTEND Family Medicine
DX: M80.08XA Age-related osteoporosis with current pathological fracture, vertebra(e), initial encounter for fracture (principal); I34.1 Nonrheumatic mitral (valve) prolapse; M41.9 Scoliosis, unspecified; G89.29 Other chronic pain; J30.2 Other seasonal allergic rhinitis; M48.061 Spinal stenosis, lumbar region without neurogenic claudication; M48.56XA Collapsed vertebra, not elsewhere classified, lumbar region, initial encounter for fracture; Z79.82 Long term (current) use of aspirin; Z85.3 Personal history of malignant neoplasm of breast; Z90.710 Acquired absence of both cervix and uterus; Z91.81 History of falling; Z92.21 Personal history of antineoplastic chemotherapy; Z92.3 Personal history of irradiation; M19.90 Unspecified osteoarthritis, unspecified site; M54.5 Low back pain; R00.0 Tachycardia, unspecified; R33.9 Retention of urine, unspecified